=== PATIENT | female | born 1965 | race African-American/Black ===

== ENCOUNTER 2017-05-10 03:51 | Emergency (ER) | payer MEDICAID, OTHER ==
[~2017-05-10] VITALS: Ht 162.6 cm; Wt 89.0 kg
[2017-05-10 09:13] VITALS: BP 132/75
[2017-05-10] MEDS ORDERED: IBUPROFEN 600MG TABLET PO ONE (09:15)
== END 2017-05-10 12:50 | disposition home or self-care (01) ==
LOC: ER 03:51
DX: M25.561 Pain in right knee (principal); M79.671 Pain in right foot; M79.605 Pain in left leg; Z87.891 Personal history of nicotine dependence
CPT/HCPCS: 73562; 73630; 93970; 99284

== ENCOUNTER 2018-06-07 06:25 | Emergency (ER) | payer MEDICAID, OTHER ==
[~2018-06-07] VITALS: Ht 162.6 cm; Wt 91.0 kg
[2018-06-07 09:30] VITALS: BP 137/89
== END 2018-06-07 10:01 | disposition home or self-care (01) ==
LOC: ER 06:58
DX: S93.402A Sprain of unspecified ligament of left ankle, initial encounter (principal); Z90.49 Acquired absence of other specified parts of digestive tract; Z98.890 Other specified postprocedural states; Z87.891 Personal history of nicotine dependence; R03.0 Elevated blood-pressure reading, without diagnosis of hypertension; W10.8XXA Fall (on) (from) other stairs and steps, initial encounter; Y93.89 Activity, other specified; Y92.018 Other place in single-family (private) house as the place of occurrence of the external cause
CPT/HCPCS: 73610; 73630; 81025; 99284; Z7610